=== PATIENT | female | born 1990 | race Caucasian/White ===

== ENCOUNTER 2021-02-25 03:09 | Emergency (ER) | payer MEDICAID, BC ==
[~2021-02-25] VITALS: Ht 160 cm; Wt 96.0 kg
[2021-02-25] MEDS ORDERED: BENZ-16 MT (04:45)
[2021-02-25 04:52] VITALS: BP 124/73
== END 2021-02-25 05:00 | disposition home or self-care (01) ==
LOC: ER 03:09
DX: J06.9 Acute upper respiratory infection, unspecified (principal); Z20.822 Contact with and (suspected) exposure to COVID-19; Z91.018 Allergy to other foods
CPT/HCPCS: 87426; 99283